=== PATIENT | female | born 1980 ===

== ENCOUNTER → 2020-10-01 | Outpatient (REF) ==
--- NOTE | 2020-10-01 11:19 | REP ---
INDICATION: DDD COMPARISON: None. TECHNIQUE: AP, lateral, coned-down views of the lumbar spine. FINDINGS: Three views of the lumbosacral spine demonstrate satisfactory alignment and lordosis without acute fracture / compression injury or subluxation. Moderate focal degenerative changes at L5-S1 includes endplate sclerosis, disc space narrowing, early spurring and facet hypertrophy. IMPRESSION: 1. No acute fracture / compression injury or subluxation. 2. Moderate focal degenerative changes at L5-S1. <Electronically signed by Marquez Nelson > 10/01/20 1117
--- NOTE | 2020-10-01 11:21 | REP ---
INDICATION: DDD. COMPARISON: None. TECHNIQUE: AP, lateral, open mouth views of the cervical spine. FINDINGS: Alignment is maintained. There is moderate degenerative disc osteophyte complex at C5-6 and C6-7 including endplate sclerosis, osteophytosis, and disc space narrowing. No acute fracture/compression injury or subluxation. IMPRESSION: Focal moderate degenerative spondylosis at C5-6 and C6-7. <Electronically signed by Marquez Nelson > 10/01/20 1115
== END ==
LOC: M RAD 10:29
PROVIDERS: ATTEND Internal Medicine
DX: M54.5 Low back pain (principal)